=== PATIENT | male | born 1965 | race Caucasian/White ===

== ENCOUNTER 2017-09-27 22:54 | Emergency (ER) | payer OTHER ==
[~2017-09-27] VITALS: Ht 185.4 cm; Wt 107.8 kg
[2017-09-28] MEDS ORDERED: ROBITUSSIN AC,T10 ML PO (00:58)
[2017-09-28] MEDS ORDERED: DELTASONE20 M1 PO (00:58)
[2017-09-28] MEDS ORDERED: ZITHROMAX250 MG PO (00:58)
[2017-09-28 01:15] VITALS: BP 131/92
== END 2017-09-28 01:18 | disposition home or self-care (01) ==
LOC: EME 22:54
DX: J40 Bronchitis, not specified as acute or chronic (principal); Z77.22 Contact with and (suspected) exposure to environmental tobacco smoke (acute) (chronic)
CPT/HCPCS: 71020; 99281; 99284; J7512